=== PATIENT | male | born 1955 | race African-American/Black ===

== ENCOUNTER 2021-02-24 07:46 | Emergency (ER) | payer MEDICARE, MEDICAID ==
[~2021-02-24] VITALS: Ht 177.8 cm; Wt 75.0 kg
[~2021-02-24 07:46] MED LIST: ASPI-1497 PO; ATOR40TA70 PO; CLOP75TA33 PO; FINA5TAB11 PO; FLUT1DIS3 IH; HCTZ; HYDR25TA PO; IBUP-2030 PO; INSU3INS6 SUBCUT; ISOS60TA76 PO; VERA240C2 PO; alfuzosin PO; fluticasone; proair HFA INH
[2021-02-24] MEDS ORDERED: BENZ9GEL TP (08:14)
[2021-02-24] MEDS ORDERED: IBUPROFEN 400MG TABLET PO ONE (08:15)
[2021-02-24 09:01] VITALS: BP 140/78
== END 2021-02-24 09:03 | disposition home or self-care (01) ==
LOC: ER 07:46
DX: K13.79 Other lesions of oral mucosa (principal); E11.9 Type 2 diabetes mellitus without complications; I10 Essential (primary) hypertension; F32.9 Major depressive disorder, single episode, unspecified; M19.90 Unspecified osteoarthritis, unspecified site; I25.2 Old myocardial infarction; F17.210 Nicotine dependence, cigarettes, uncomplicated; Z88.5 Allergy status to narcotic agent; Z71.6 Tobacco abuse counseling
CPT/HCPCS: 99283; 99406